=== PATIENT | female | born 1945 | race Caucasian/White ===

== ENCOUNTER 2017-02-05 08:17 | Day surgery (SDC) | payer MEDICARE ==
[2017-02-05] MEDS ORDERED: LACTATED RINGERS 1,000 ML IV ONE ×3 (08:57→11:30)
[2017-02-05] MEDS ORDERED: MIDAZOLAM 2 MG/2 ML VIAL IVP ONE (11:22)
[2017-02-05] MEDS ORDERED: fentaNYL 100 MCG/2 ML VIAL IVP ONE (11:22)
[2017-02-05] MEDS ORDERED: BENZOCAINE/TETRACAINE/BUTAMBEN SPRAY 56 GM TOP ONE (11:25)
[2017-02-05] MEDS ORDERED: LIDO GARGLE 30 ML BOTTLE PO ONE (11:25)
[2017-02-05 13:32] VITALS: BP 123/66
--- NOTE | 2017-02-09 18:58 | OPERATIVE REPORT ---
Operative Report - General Procedure Date: 02/05/17 Planned Procedure: EGD & Colonoscopy Pre-Op Diagnosis: + occult blood & esophageal spasms Post Op Diagnosis: Diverticulosis, Tubular adenoma - Procedure Note Primary Surgeon: Buck Doss Anesthesia Provider: Yonathan Kathleen RNC Anesthesia Technique: Other (Conscious sedation) Estimated Blood Loss (in cc): 1 Complications: None - Other Other Information/Narrative: Please refer to scanned EGD & Colonoscopy reports
== END 2017-02-05 08:18 | disposition home or self-care (01) ==
LOC: SDS 08:17
PROVIDERS: ATTEND Surgery
PROC: 0DBM8ZX Excision of Descending Colon, Via Natural or Artificial Opening Endoscopic, Diagnostic (ICD-10-PCS; principal; 2017-02-05 09:15)
PROC: 0DJ08ZZ Inspection of Upper Intestinal Tract, Via Natural or Artificial Opening Endoscopic (ICD-10-PCS; 2017-02-05 09:15)
DX: R19.5 Other fecal abnormalities (principal); D12.4 Benign neoplasm of descending colon; K21.9 Gastro-esophageal reflux disease without esophagitis; K44.9 Diaphragmatic hernia without obstruction or gangrene; R12 Heartburn; K57.30 Diverticulosis of large intestine without perforation or abscess without bleeding; Z83.3 Family history of diabetes mellitus; Z82.49 Family history of ischemic heart disease and other diseases of the circulatory system; Z80.42 Family history of malignant neoplasm of prostate; Z88.2 Allergy status to sulfonamides; K29.70 Gastritis, unspecified, without bleeding; E11.9 Type 2 diabetes mellitus without complications; Z79.84 Long term (current) use of oral hypoglycemic drugs; J45.909 Unspecified asthma, uncomplicated
CPT/HCPCS: 43235; 45384; 87640; A9270; J7120; 87081; 88305

== ENCOUNTER 2017-09-04 10:09 | Outpatient (CLI) | payer MEDICARE ==
--- NOTE | 2017-09-16 09:50 | Mammography Report ---
DATE OF SERVICE: 09/04/2017 DIGITAL BILATERAL SCREENING MAMMOGRAM: 09/04/2017 CLINICAL INDICATION: A 71-year-old nulliparous patient, for screening. COMPARISON: Films from [place], [place] dated 04/25/2016, 04/12/2015. TECHNIQUE: Routine CC and MLO projections were obtained of the breasts. FINDINGS: The breasts again demonstrate heterogeneously dense fibroglandular parenchyma bilaterally. Coarse and punctate, typically benign calcifications are present. Intramammary lymph nodes are stable. No suspicious masses, clustered microcalcifications, or regions of architectural distortion are identifi ed. IMPRESSION: BENIGN FINDINGS. RECOMMENDATION: ROUTINE ANNUAL SCREENING UNLESS OTHERWISE CLINICALLY INDICATED. BIRADS CATEGORY 2-BENIGN FINDINGS. STANDARD QUALIFYING STATEMENTS: 1. This examination was reviewed with the aid of Computer-Aided Detection (CAD). 2. A negative or benign imaging report should not delay biopsy if clinically suspicious findings are present. Consider surgical consultation if warranted. More than 5% of cancers are not identified by imaging. 3. Dense breasts may obscure an underlying neoplasm. TD: 09/16/2017 10:49
== END 2017-09-04 10:10 | disposition home or self-care (01) ==
LOC: DI.S 10:09
PROVIDERS: ATTEND Internal Medicine
DX: Z12.31 Encounter for screening mammogram for malignant neoplasm of breast (principal)
CPT/HCPCS: 77067

== ENCOUNTER 2018-08-19 16:06 | Outpatient (CLI) | payer MEDICARE ==
--- NOTE | 2018-08-20 10:51 | Ultrasound Report ---
Reason: DIZZINESS AND GIDDINESS Procedure Date: 08/19/2018 Accession Number: [id number] / [id number] Procedure: US - Carotid Doppler Complete CPT Code: FULL RESULT: EXAM: BILATERAL CAROTID AND VERTEBRAL ARTERY DUPLEX DOPPLER ULTRASOUND: EXAM DATE: 08/19/2018 05:05 PM CLINICAL HISTORY: Dizziness and giddiness. COMPARISON: None. TECHNIQUE: Grayscale imaging, color Doppler, and duplex spectral Doppler were used to evaluate the carotid and vertebral arteries bilaterally. Static images were obtained. FINDINGS: No significant plaque is identified in the right or left common or internal carotid arteries. Normal antegrade flow is present in bilateral vertebral arteries. VELOCITIES (cm/sec): Right CCA mid: PSV 67.4 cm/sec CCA dist: PSV 51.3 cm/sec ICA prox: PSV 51.5 cm/sec, EDV 15.7 cm/sec ICA mid: PSV 61.5 cm/sec, EDV 23 cm/sec ICA dist: PSV 62.9 cm/sec, EDV 23.3 cm/sec ECA: PSV 80.3 cm/sec Vert: PSV 52.6 cm/sec ICA/CCA: 1.2 Left CCA mid: PSV 71.1 cm/sec CCA dist: PSV 70.5 cm/sec ICA prox: PSV 45.4 cm/sec, EDV 16.1 cm/sec ICA mid: PSV 60.1 cm/sec, EDV 18.8 cm/sec ICA dist: PSV 56.4 cm/sec, EDV 20.1 cm/sec ECA: PSV 67.0 cm/sec Vert: PSV 56.4 cm/sec ICA/CCA: 0.85 ICA diameter stenosis: Right: <50% by velocity and <70% by NASCET criteria. Left: <50% by velocity and <70% by NASCET criteria. IMPRESSION: 1. No significant bilateral carotid artery plaquing. 2. In the right carotid artery there are no elevated carotid artery velocities to suggest hemodynamically significant stenosis. 3. In the left carotid artery there are no elevated carotid artery velocities to suggest hemodynamically significant stenosis. 4. Normal antegrade flow is present in bilateral vertebral arteries. General Recommendations: Stenosis =50% ICA - Follow-up ultrasound 6-12 months Stenosis <50% ICA - High Risk Patient with plaque - Follow-up ultrasound 1-2 years Normal Study but High Risk Patient - Follow-up ultrasound 3-5 years Management recommendations and diagnostic criteria are based on current IAC endorsed standards in Carotid Artery Stenosis: Grayscale and Doppler Ultrasound Diagnosis. Validated velocity measurements with angiographic measurements and velocity criteria are extrapolated from diameter data as defined by the Society of Radiologists in Ultrasound Consensus Conference Radiology 2003; 229;340-346. RADIA
== END 2018-08-19 16:07 | disposition home or self-care (01) ==
LOC: DI 16:06
PROVIDERS: ATTEND Nurse Practitioner Family
DX: R42 Dizziness and giddiness (principal)
CPT/HCPCS: 93880

== ENCOUNTER 2019-07-14 12:52 | Outpatient (CLI) | payer MEDICARE ==
--- NOTE | 2019-07-15 08:56 | DEXA Report ---
Reason: SCREENING FOR OSTEOPOROSIS, POSTMENOPAUSAL Procedure Date: 07/14/2019 Accession Number: [id number] / [id number] Procedure: DEX - Dexa Spine and/or Hip CPT Code: Final Report FULL RESULT: EXAM: Dexa Spine and/or Hip DATE: 07/14/2019 2:01 PM CLINICAL HISTORY: SCREENING FOR OSTEOPOROSIS, POSTMENOPAUSAL TECHNIQUE: Dual energy x-ray absorptiometry (DXA) was performed on a [employer] System. Regions measured are the AP Spine, femoral neck, and if needed forearm. COMPARISON: None. In accordance with the International Society for Clinical Densitometry (ISCD) guidelines, data from previous exams may be reanalyzed using current recommendations and techniques. This is done to allow a more accurate basis for comparison with the current study. FINDINGS: The data for the lumbar spine is as follows: BMD (g/cm/cm) T-SCORE Z-SCORE REGION L1 0.821 -2.6 -0.7 L2 0.914 -2.4 -0.5 L3 0.962 -2.0 -0.1 L4 0.981 -1.8 0.1 TOTAL 0.924 -2.1 -0.2 NOTE: All evaluable vertebrae are used for classification The data for the hip is as follows: BMD (g/cm/cm) T-SCORE Z-SCORE REGION Neck 0.667 -2.7 -0.7 TOTAL 0.766 -1.9 -0.2 NOTE: The femoral neck or total proximal femur, whichever is lowest, is used for classification. IMPRESSION: THE WHO CLASSIFICATION BASED ON THE INTERNATIONAL REFERENCE STANDARD IS OSTEOPOROSIS. THE FRACTURE RISK IS HIGH. RECOMMENDATION: Patients with diagnosis of osteoporosis or osteopenia should have regular bone mineral density assessment. For those eligible for Medicare, routine testing is allowed once every 2 years. Testing frequency can be increased for patients who have rapidly progressing disease or for those who are receiving medical therapy to restore bone mass. COMMENT: World Health Organization (WHO) definitions for osteoporosis and osteopenia: NORMAL BMD: T-score at -1.0 or higher, fracture risk is low OSTEOPENIA BMD: T-score between -1.0 and -2.5, fracture risk is increased. OSTEOPOROSIS BMD: T-score at -2.5 or lower, fracture risk is high. National Osteoporosis Foundation recommends: 1. Obtain adequate dietary calcium (at least 1200 mg per day) and vitamin D (400-800 international units per day). 2. Participate, as appropriate, in regular weightbearing and muscle-strengthening exercise. 3. Avoid tobacco use and reduce alcohol and caffeine intake. 4. For more detailed information see the website at www.NOF.org.
== END 2019-07-14 12:53 | disposition home or self-care (01) ==
LOC: DI 12:52
PROVIDERS: ATTEND Internal Medicine
DX: M81.0 Age-related osteoporosis without current pathological fracture (principal); Z78.0 Asymptomatic menopausal state
CPT/HCPCS: 77080

== ENCOUNTER 2020-05-27 10:16 | Outpatient (CLI) | payer MEDICARE ==
[2020-05-27 15:37] LABS: CREATININE,URINE 144.2 mg/dL; MICROALBUM/CREATININE RATIO,UR 5.5 ug/mg (<30.0); MICROALBUMIN,URINE 0.8 mg/dL (0-300.0)
[2020-05-27 16:18] LABS: ALBUMIN 4.1 g/dL (3.2-5.5); ALBUMIN/GLOBULIN RATIO 1.3 (1.0-2.2); ALKALINE PHOSPHATASE 42 IU/L (42-121); ALT ALANINE AMINOTRANSFERASE 15 IU/L (10-60); AST ASPARTATE AMINOTRANSFERASE 17 IU/L (10-42); BILIRUBIN,TOTAL 0.4 mg/dL (0.2-1.0); BUN - BLOOD UREA NITROGEN 17 mg/dL (6-20); CALCIUM 9.4 mg/dL (8.5-10.3); CARBON DIOXIDE - CO2 26 mmol/L (21-32); CHLORIDE 101 mmol/L (101-111); CHOL/HDL RATIO 2.5 (<4.4); CHOLESTEROL 191 mg/dL; CREATININE 0.8 mg/dL (0.4-1.0); GLUCOSE 241 mg/dL (70-100); HDL CHOLESTEROL 76 mg/dL; LDL CHOLESTEROL,CALCULATED 98 mg/dL; LDL/HDL RATIO 1.3 (<4.4); SODIUM 137 mmol/L (135-145); TOTAL PROTEIN 7.2 g/dL (6.7-8.2); VLDL CHOLESTEROL 17 mg/dL
[2020-05-27 21:36] LABS: HEMOGLOBIN A1c% 7.3 % (4.27-6.07)
== END 2020-05-27 10:17 | disposition home or self-care (01) ==
LOC: LAB.S 10:16
PROVIDERS: ATTEND Internal Medicine
DX: E11.9 Type 2 diabetes mellitus without complications (principal); E78.5 Hyperlipidemia, unspecified
CPT/HCPCS: 36415; 80053; 80061; 82043; 82570; 83036; 83721

== ENCOUNTER 2020-09-20 16:06 | Outpatient (CLI) | payer MEDICARE ==
--- OUTSIDE RECORDS SUMMARY | 2020-09-21 04:51 | EXTERNAL MEDICAL SUMMARY RPT | Continuity of Care Document ---
:1945 Demographics Phone Unavailable Preferred Language Armenian Marital Status Unknown Mu-Ism Affiliation Unknown Race Unknown Ethnic Group Unknown Author Organization [facility] Address [address] [place] [address] Phone Care Team Providers Name Role Phone Steve, Provider Unavailable Unavailable Anamaria Carrillo Unavailable Unavailable Problems date description facility 2020-07-18 00:00:00 Vaginitis and vulvovaginitis, [facility] unspecified [facility] 2020-07-18 00:00:[facility] 2020-07-18 [facility]:00[facility] 2020-07-18 00:00:00 Vulvodynia, unspecified [facility] 2020-07-18 00:00:00 [facility] 2020-07-18 00:00:00 [facility] smoker [facility] 2020-07-18 00:00:00 [facility]ovaginitis [facility] 2020-07-18 00:00:00 Alcohol use [facility] 2020-07-18 00:00:00 Tobacco smoking status NHIS [facility] 2020-07-18 00:00:00 Total score? [facility] Allergies date description facility NO KNOWN ENVIRONMENTAL ALLERGIES [facility] Medications date description facility 2020-07-18 00:00:00 null [facility] 2020-07-18 00:00:00 null [facility] 2020-07-18 00:00:00 null [facility] 2020-07-18 00:00:00 null [facility] 2020-07-18 00:00:00 CLOBETASOL PROPIONATE [facility] 2020-07-18 00:00:00 FLUCONAZOLE [facility] 2020-07-18 00:00:00 FLUCONAZOLE [facility] 2020-07-18 00:00:00 CLOBETASOL PROPIONATE [facility] Social History date description facility 2020-07-18 00:00:00 Never smoker [facility] Social History date description facility 2020-07-18 00:00:00 Never smoker [facility] date description facility [phone]
--- NOTE | 2020-09-29 09:33 | Mammography Report ---
BILATERAL DIGITAL SCREENING MAMMOGRAM 3D/2D: 09/20/2020 CLINICAL: Routine screening. Comparison is made to exams dated: 09/04/2017 mammogram and 04/25/2016 mammogram - [facility]. The tissue of both breasts is extremely dense, which lowers the sensitivity of mammograp hy. There are benign calcifications in both breasts. No significant masses, calcifications, or other findings are seen in either breast. There has been no significant interval change. IMPRESSION: BENIGN There is no mammographic evidence of malignancy. A 1 year screening mammogram is recommended. This exam was interpreted at Station ID: [id number]. NOTE: For mammograms, a report in lay terms will be sent to the patient. Approximately 15% of breast malignancies will not be visualized mammographically. In the management of a palpable breast mass, a negative mammogram must not discourage biopsy of a clinically suspicious lesion. Electronically Signed By: Samir Li M.D. slc/penrad:09/28/2020 17:28:41 ACR BI-RADS Category 2: Benign Finding(s) 3342F PARENCHYMAL PATTERN: (VD) - The breast(s) demonstrate(s) extremely dense parenchyma, limiting the sen sitivity of mammography. BI-RADS CATEGORY: (2) - 2 RECOMMENDATION: (ANNUAL) - Recommend routine annual screening mammography. [id number] 1 year screening LATERALITY: (B)
== END 2020-09-20 16:07 | disposition home or self-care (01) ==
LOC: DI.S 16:06
PROVIDERS: ATTEND Registered Nurse
DX: Z12.31 Encounter for screening mammogram for malignant neoplasm of breast (principal)

== ENCOUNTER 2020-10-26 12:09 | Outpatient (CLI) | payer MEDICARE ==
--- NOTE | 2020-10-27 16:52 | Ultrasound Report ---
ULTRASOUND OF RIGHT AXILLA: 10/26/2020 CLINICAL: Diffuse right axilla pain. Comparison is made to exams dated: 09/20/2020 mammogram, 09/04/2017 mammogram, and 04/25/2016 mammogra - [facility]. Color flow ultrasound of the right axilla was performed. Aly scale images of the real-time examinat ion were reviewed. There are benign normal lymph nodes in the right axilla. IMPRESSION: BENIGN There is no sonographic evidence of malignancy. There is no abnormality seen in the right axilla to correspond with the palpable abnormality in the r ight axilla, however, clinical correlation is recommended. A 1 year screening mammogram is recommended. Future imaging is recommended as follows: 09/29/2021 sc reening mammogram. This exam was interpreted at Station ID: [id number]. Electronically Signed By: Otilio ridley/iliana:10/26/2020 13:21:03 Ultrasound BI-RADS: 2 Benign BI-RADS CATEGORY: (2) - 2 RECOMMENDATION: (ANNUAL) - Recommend routine annual screening mammography. [id number] 1 year screening LATERALITY: (B)
== END 2020-10-26 12:10 | disposition home or self-care (01) ==
LOC: DI 12:09
PROVIDERS: ATTEND Physician Assistant
DX: R59.0 Localized enlarged lymph nodes (principal)

== ENCOUNTER 2021-07-31 11:08 | Outpatient (CLI) | payer MEDICARE ==
--- NOTE | 2021-07-31 15:35 | XRAY Report ---
PROCEDURE: Chest 2 View X-Ray INDICATIONS: COUGH, UNSPECIFIED TECHNIQUE: 2 view(s) of the chest. COMPARISON: None. FINDINGS: Surgical changes and devices: None. Lungs and pleura: Hyperinflation chronic interstitial changes noted. Mediastinum: Mediastinal contours are normal. Heart size is normal. Bones and chest wall: No suspicious bony abnormalities. Soft tissues appear unremarkable. IMPRESSION: Hyperinflation and chronic interstitial changes without focal infiltrate, pneumothorax o r pleural effusion. Reviewed by: Ronnie Toro MD on 07/31/2021 2:33 PM [facility] Approved by: Ronnie Toro MD on 07/31/2021 2:33 PM [place] Station ID: [id number]
== END 2021-07-31 11:09 | disposition home or self-care (01) ==
LOC: DI.S 11:08
PROVIDERS: ATTEND Registered Nurse
DX: R05.9 Cough, unspecified (principal); R91.8 Other nonspecific abnormal finding of lung field

== ENCOUNTER 2021-09-25 08:00 | Outpatient (CLI) | payer MEDICARE ==
[2021-09-25 19:17] LABS: BACTERIAL VAGINOSIS DNA NEGATIVE (NEGATIVE); CANDIDA GLABRATA DNA NEGATIVE (NEGATIVE); CANDIDA GROUP DNA NEGATIVE (NEGATIVE); CANDIDA KRUSEI DNA NEGATIVE (NEGATIVE); TRICHOMONAS VAGINALIS DNA NEGATIVE (NEGATIVE)
== END 2021-09-25 23:59 ==
LOC: LAB.WC 08:00
PROVIDERS: ATTEND Obstetrics & Gynecology
DX: N76.0 Acute vaginitis (principal)
CPT/HCPCS: 87661; 87801

== ENCOUNTER 2022-03-14 13:25 | Outpatient (CLI) | payer MEDICARE ==
[2022-03-14 19:43] LABS: BASOPHILS # (AUTO) 0.1 10^3/uL (0.0-0.1); BASOPHILS % (AUTO) 0.9 %; EOSINOPHILS # (AUTO) 0.3 10^3/uL (0.0-0.7); EOSINOPHILS % (AUTO) 3.7 %; HCT - HEMATOCRIT 37.6 % (37.0-47.0); LYMPHOCYTES # (AUTO) 1.9 10^3/uL (1.5-3.5); LYMPHOCYTES % (AUTO) 27.1 %; MEAN CORPUSCULAR HEMOGLOBIN 28.4 pg (27.0-31.0); MEAN CORPUSCULAR HGB CONC 31.9 g/dL (32.0-36.0); MEAN CORPUSCULAR VOLUME 88.9 fL (81.0-99.0); MEAN PLATELET VOLUME 9.6 fL (7.9-10.8); MONOCYTES # (AUTO) 0.3 10^3/uL (0.0-1.0); MONOCYTES % (AUTO) 4.8 %; NEUTROPHILS # (AUTO) 4.5 10^3/uL (1.5-6.6); NEUTROPHILS % (AUTO) 63.2 %; PLT - PLATELET COUNT 262 10^3/uL (130-450); RED BLOOD COUNT 4.23 10^6/uL (4.20-5.40)
[2022-03-14 20:01] LABS: ALBUMIN 4.1 g/dL (3.2-5.5); ALBUMIN/GLOBULIN RATIO 1.4 (1.0-2.2); ALKALINE PHOSPHATASE 38 IU/L (42-121); ALT ALANINE AMINOTRANSFERASE 27 IU/L (10-60); AST ASPARTATE AMINOTRANSFERASE 27 IU/L (10-42); BILIRUBIN,TOTAL 0.5 mg/dL (0.2-1.0); BUN - BLOOD UREA NITROGEN 19 mg/dL (6-20); CALCIUM 9.4 mg/dL (8.5-10.3); CARBON DIOXIDE - CO2 30 mmol/L (21-32); CHLORIDE 98 mmol/L (101-111); CREATININE 0.9 mg/dL (0.4-1.0); GFR - MDRD 61 (>89); GLUCOSE 308 mg/dL (70-100); SODIUM 135 mmol/L (135-145); TOTAL PROTEIN 7.1 g/dL (6.7-8.2)
[2022-03-14 20:02] LABS: CRP - C-REACTIVE PROTEIN < 1.0 mg/dL (0-1.0)
[2022-03-19 08:08] LABS: LYME TOTAL AB EIA Negative (Negative)
== END 2022-03-14 13:26 | disposition home or self-care (01) ==
LOC: LAB.S 13:25
PROVIDERS: ATTEND Registered Nurse
DX: R53.83 Other fatigue (principal); Z20.818 Contact with and (suspected) exposure to other bacterial communicable diseases
CPT/HCPCS: 36415; 80053; 84443; 85025; 85651; 86140; 86618

== ENCOUNTER 2023-03-01 15:49 | Outpatient (CLI) | payer MEDICARE ==
--- NOTE | 2023-03-01 16:46 | XRAY Report ---
PROCEDURE: Lumbar Spine Complete INDICATIONS: LOW BACK STRAIN TECHNIQUE: 5 views of the lumbar spine were acquired. COMPARISON: None. FINDINGS: Bones: 5 [id number] vertebrae are present. Multilevel disc space narrowing and endplate osteoph yte formation, as well as facet hypertrophy. There is normal bony alignment. No vertebral body compr ession fractures. No suspicious bony lesions. Soft tissues: Overlying bowel gas pattern is normal. No suspicious soft tissue calcifications. IMPRESSION: 1. Multilevel degenerative disc and facet disease. 2. No acute fracture. No osseous lesion. If symptoms and/or clinical suspicion for pathology continue , further assessment with repeat plain films, or advanced imaging (e.g., CT, MRI, or bone scan) is re commended for further assessment. Reviewed by: Donny Loaiza MD on 03/01/2023 4:45 PM PDT Approved by: Donny Loaiza MD on 03/01/2023 4:45 PM PDT Station ID: [id number]
== END 2023-03-01 15:50 | disposition home or self-care (01) ==
LOC: DI.S 15:49
PROVIDERS: ATTEND Nurse Practitioner Family
DX: M47.816 Spondylosis without myelopathy or radiculopathy, lumbar region (principal); M51.36 Other intervertebral disc degeneration, lumbar region

== ENCOUNTER 2024-01-06 13:01 | Outpatient (CLI) | payer MEDICARE ==
[2024-01-06] MEDS: ALBUTEROL 1 PUFF INH STA (15:02)
== END 2024-01-06 13:02 | disposition home or self-care (01) ==
LOC: RT 13:01
PROVIDERS: ATTEND Registered Nurse
DX: J45.909 Unspecified asthma, uncomplicated (principal)
CPT/HCPCS: 94010; 94727; 94729